=== PATIENT | male | born 1960 | race Caucasian/White ===

== ENCOUNTER 2016-08-22 09:36 | Emergency (ER) | payer MEDICAID, OTHER ==
[~2016-08-22] VITALS: Ht 185.4 cm; Wt 86.2 kg
[2016-08-22] MEDS ORDERED: HYDROmorphone HCL 2 MG/ML VL IM ONE (12:00)
[2016-08-22] MEDS ORDERED: PROMETHAZINE HCL 25 MG/ML 1ML IM ONE (12:00)
[2016-08-22 12:47] VITALS: BP 157/98
== END 2016-08-22 12:46 | disposition home or self-care (01) ==
LOC: ER 09:40
DX: M51.16 Intervertebral disc disorders with radiculopathy, lumbar region (principal); F17.210 Nicotine dependence, cigarettes, uncomplicated
CPT/HCPCS: 96372; 99284; J1170; J2550